=== PATIENT | female | born 1955 | race Caucasian/White ===

== ENCOUNTER → 2016-10-09 | Day surgery (SDC) | payer MEDICAID ==
[~2016-10-09] VITALS: Ht 152.4 cm; Wt 82.0 kg
[~2016-10-09] MED LIST: ASPI-110 PO; ATRO1SOL11 LEFT EYE; CYCLOPENTOLATE HCL 1% OPHT SOLN 2 ML BTL ONE; EPINEPHrine-Lidocaine/BSS (PF/SF) 4-120 mg/16 mL OPTH SYR LEFT EYE ONE; EPINEPHrine-Lidocaine/BSS (PF/SF) 4-120 mg/16 mL OPTH SYR RIGHT EYE ONE; INSULIN HUMAN REGULAR 1,000 UNITS/10 ML VIAL ONE; LANTUS2P SQ; LOSA50TA PO; METO50TA PO; MIDAZOLAM HCL 2 MG/2 ML VIAL IV ONE; MIDAZOLAM HCL 2 MG/2 ML VIAL ONE; NOVOLOGSS SQ; PHENYLEPH/NS 1000 MCG/10 ML SYR IV ONE; PHENYLEPHRINE HCL 10% OPTH SOLN 5 ML BTL ONE; PRAV40TA2 PO; PRED1SUS LEFT EYE; PROPOFOL 200 MG/20 ML AMP IV ONE; SODIUM CHLORID 0.9% 500 ML INJ 500 ML ONE; TOBRAMYCIN/DEXAMETHASONE OPTH OINT 3.5 GM TUBE LEFT EYE ONE; TROPICAMIDE 1% OPHT SOLN 15 ML BTL ONE; VISCOAT OPHT IRRIG SOLN 0.75 ML SYRINGE LEFT EYE ONE; ePHEDrine/NS 25 MG/5 ML SYR IV ONE
[2016-10-09 06:38] VITALS: BP 142/84; PULSE 85; RESP 16; TEMP 97.9; O2SAT 95
[2016-10-09] MEDS: TETRACAINE 0.5% OPTH SOLN 4 ML BTL RIGHT EYE SCH ×3 (07:04→07:14)
[2016-10-09] MEDS: PHENYLEPHRINE HCL 10% OPTH SOLN 5 ML BTL RIGHT EYE SCH ×3 (07:04→07:14)
[2016-10-09] MEDS: TROPICAMIDE 1% OPHT SOLN 15 ML BTL RIGHT EYE SCH ×3 (07:04→07:14)
[2016-10-09] MEDS: CYCLOPENTOLATE HCL 1% OPHT SOLN 2 ML BTL RIGHT EYE SCH ×3 (07:04→07:14)
[2016-10-09 09:07] VITALS: PULSE 88
[2016-10-09 09:40] VITALS: TEMP 98
--- NOTE | 2016-10-09 10:04 | PD.OP ---
Operative Report Date of Surgery: Oct 09, 2016 Preoperative Diagnosis: (1) Total, mature senile cataract Postoperative Diagnosis: (1) Pseudophakia of left eye Procedure: phacoemulsification and intraocular lens implant left eye Anesthesia: General Surgeon: Melissa Amos Auto Servicer(s): none Operation and Findings: Patient was consented for surgery, taken back to the operating room, and put under general anesthesia. She was prepped and draped in the usual sterile fashion for ophthalmic surgery. A wire lid speculum was placed in the left eye. A paracentesis incision was created at the 5 o'clock position on the limbus. Epishugarcaine and Provisc was injected into the anterior chamber. The main incision was created at the 2 o'clock position on the limbus with a 2.4 mm keratome. Viscodissection of the posterior synechiae was achieved and the pupil expanded well. Irrigation/aspiration was used to remove the Provisc. Vision blue was injected into the anterior chamber and washed out. A continuous curvilinear capsulorrhexis was made on the anterior lens capsule. Hydrodissection was done to separate the lens nucleus from the capsule. Phacoemulsification was used to remove the lens nucleus material. Irrigation and aspiration was used to remove the remaining cortical material. The lens implant was placed in the capsular bag. Viscoelastic was removed with irrigation and aspiration. The incisions were irrigated and found to be watertight. Tobradex ointment, a patch, and shield were placed on the left eye. The patient was sent to PACU in stable condition. Melissa Amos MD Oct 09, 2016 10:04
[2016-10-09 10:10] VITALS: BP 138/77; PULSE 85; RESP 16; O2SAT 99
== END | disposition home or self-care (01) ==
LOC: PHSDC 06:10
PROVIDERS: ATTEND Ophthalmology
DX: H25.89 Other age-related cataract (principal); E11.9 Type 2 diabetes mellitus without complications; Z79.4 Long term (current) use of insulin
CPT/HCPCS: 00142; 66984; 82948; J1815; J2250; J2370; J3010; J7040; V2632